=== PATIENT | female | born 1995 | race Caucasian/White ===

== ENCOUNTER → 2018-12-11 | Outpatient (REF) | payer MEDICAID, OTHER ==
[2018-12-11 12:35] LABS: HEMATOCRIT 38.3 % (36.0-47.0); HEMOGLOBIN 12.4 g/dl (12.0-15.5); MEAN CORPUSCULAR HEMOGLOBIN 27.7 pg (27.0-33.0); MEAN CORPUSCULAR HGB CONC 32.4 g/dl (32.0-36.5); MEAN CORPUSCULAR VOLUME 85.7 fl (80.0-96.0); PLATELET COUNT, AUTOMATED 229 10^3/uL (150-450); RED BLOOD COUNT 4.47 10^6/uL (4.00-5.40); WHITE BLOOD COUNT 10.4 10^3/uL (4.0-10.0)
[2018-12-11 13:10] LABS: HCG, SERUM QUANTITATIVE 21016 MIU/ML
[2018-12-12 08:38] LABS: RUBELLA IgG QUALITATIVE IMMUNE (IMMUNE)
[2018-12-12 09:05] LABS: HEPATITIS C VIRUS ABY INDEX 0.1 INDEX (<0.8)
[2018-12-12 09:28] LABS: HIV 1&2 SCREEN CENTAUR NEGATIVE (NEGATIVE)
== END ==
LOC: M LAB REF 11:46
PROVIDERS: ATTEND Nurse Practitioner Women's Health
DX: O36.80X0 Pregnancy with inconclusive fetal viability, not applicable or unspecified (principal); Z3A.00 Weeks of gestation of pregnancy not specified

== ENCOUNTER → 2019-04-17 | Outpatient (CLI) | payer MEDICAID ==
[2019-04-17 14:04] LABS: HEMATOCRIT 35.5 % (36.0-47.0); HEMOGLOBIN 11.5 g/dl (12.0-15.5); MEAN CORPUSCULAR HEMOGLOBIN 27.7 pg (27.0-33.0); MEAN CORPUSCULAR HGB CONC 32.4 g/dl (32.0-36.5); MEAN CORPUSCULAR VOLUME 85.5 fl (80.0-96.0); PLATELET COUNT, AUTOMATED 211 10^3/uL (150-450); RED BLOOD COUNT 4.15 10^6/uL (4.00-5.40)
[2019-04-20 07:36] LABS: WHITE BLOOD COUNT 10.7 10^3/uL (4.0-10.0)
== END ==
LOC: M LAB 11:57
PROVIDERS: ATTEND Obstetrics & Gynecology
DX: Z34.82 Encounter for supervision of other normal pregnancy, second trimester (principal); Z36.89 Encounter for other specified antenatal screening

== ENCOUNTER → 2019-06-25 | Outpatient (REF) | payer OTHER | LOC: M LAB REF 16:12 | PROVIDERS: ATTEND Obstetrics & Gynecology | DX: Z34.83 Encounter for supervision of other normal pregnancy, third trimester (principal) ==

== ENCOUNTER → 2019-07-24 | Outpatient (CLI) | payer OTHER ==
--- NOTE | 2019-07-24 14:19 | REP ---
OBSTETRIC SONOGRAPHY: HISTORY: Supervision of . Biophysical profile, estimated weight. SONOGRAPHIC FINDINGS: Scanning through the gravid uterus demonstrates a single living intrauterine cephalic fetus. motion is observed and heart rate is recorded at 132 beats per minute. An anterior grade 2 placenta is seen without evidence of previa or abruption. Amniotic fluid is subjectively normal. Closed cervical length is 3.5 cm, measured transabdominally. There is a 1.6 x 1.6 x 1.6 cm cyst noted incidentally in the right kidney. BIOMETRY CHART: BPD 8.9 cm = 36 weeks 0 days Head circumference 32.3 cm = 36 weeks 3 days Abdominal circumference 31.7 cm = 35 weeks 4 days Femur length 7.2 cm = 36 weeks 6 days Humeral length 6.3 cm = 36 weeks 2 days HC/AC ratio normal 1.02 Cephalic index normal 0.77 Estimated weight 2846 grams, 6 pounds 4 ounces, 15th percentile for 19 weeks 2 days. KEON 12.0 cm (7.2-22.2 cm). Biophysical profile score 8 out of a possible 8. IMPRESSION: Viable single intrauterine gestation at 36 weeks 1 day by today's composite sonographic criteria. RICARDO by today's criteria August 20, 2019. 1.6 cm cyst in the right kidney. BPP 8/8 and KEON 12.0 cm.
== END ==
LOC: M WHC 10:28
PROVIDERS: ATTEND Obstetrics & Gynecology
DX: O28.5 Abnormal chromosomal and genetic finding on antenatal screening of mother (principal); Z36.89 Encounter for other specified antenatal screening; Z3A.36 36 weeks gestation of pregnancy

== ENCOUNTER 2019-08-01 04:22 | Inpatient (IN) | payer OTHER ==
[2019-08-01] VITALS (59 sets, daily range): BP systolic 96–176; BP diastolic 56–98
[~2019-08-01] VITALS: Ht 162.6 cm; Wt 108.9 kg
[2019-08-01] MEDS ORDERED: LR 1,000 ML IV SCH (05:17)
[2019-08-01] MEDS ORDERED: LACTATED RINGER'S 1000 ML IV STA (05:17)
[2019-08-01 06:36] LABS: MEAN CORPUSCULAR HEMOGLOBIN 27.1 pg (27.0-33.0); MEAN CORPUSCULAR HGB CONC 33.3 g/dl (32.0-36.5); MEAN CORPUSCULAR VOLUME 81.3 fl (80.0-96.0); PLATELET COUNT, AUTOMATED 244 10^3/uL (150-450); RED BLOOD COUNT 4.43 10^6/uL (4.00-5.40); WHITE BLOOD COUNT 14.4 10^3/uL (4.0-10.0)
[2019-08-01 06:57] LABS: ALT/SGPT 16 U/L (12-78); BILIRUBIN,TOTAL 0.2 MG/DL (0.2-1.0); CREATININE FOR GFR 0.55 MG/DL (0.55-1.30); GLOMERULAR FILTRATION RATE > 60.0 (>60); LDH LACTATE DEHYDROGENASE 132 U/L (84-246)
[2019-08-01] MEDS ORDERED: FENTANYL 2MCG/ML ROPIVACAINE 0.2% IN 0.9% NACL 100ML IVBAG As Ordered ONE (08:12)
[2019-08-01] MEDS ORDERED: OXYTOCIN DRIP 30 UNITS in IV 1 EA IV SCH ×2 (08:15→15:45)
[2019-08-01] MEDS ORDERED: ePHEDrine SULFATE 25 MG/5 ML(5MG/ML) SYRINGE IV PRN (08:30)
[2019-08-01] MEDS ORDERED: NALOXONE INJ 0.4MG/1ML VIAL (J2310 PER 1MG) IV PRN (08:30)
[2019-08-01] MEDS ORDERED: EPIDURAL COMMENT XX SCH (08:30)
[2019-08-01] MEDS ORDERED: EPIDURAL/PCA KEYS XX PRN (08:30)
[2019-08-01] MEDS ORDERED: LACTATED RINGER'S 1000 ML IV PRN (08:30)
[2019-08-01] MEDS ORDERED: REFRIGERATOR IV KEYS XX PRN (08:30)
[2019-08-01] MEDS ORDERED: ONDANSETRON 4MG/2ML VIAL IV PRN (08:30)
[2019-08-01] MEDS ORDERED: FENTANYL/ROPIVACAINE/NACL BAG 100 ML EPIDURAL SCH (08:30)
[2019-08-01] MEDS ORDERED: diphenhydrAMINE 50MG/ML VIAL (J1200) IV PRN (08:30)
[2019-08-01] MEDS ORDERED: MEASLES,MUMPS,RUBELLA VACCINE INJ (MMR-II) (90707) SC SCH (15:15)
[2019-08-01] MEDS ORDERED: IBUPROFEN 800 MG TAB PO PRN (15:15)
[2019-08-01] MEDS ORDERED: ACETAMINOPHEN TAB 650MG DOSE (2X325MG) PO PRN (15:15)
[2019-08-01] MEDS ORDERED: DIBUCAINE 1% OINTMENT 30GM TOP PRN (15:15)
[2019-08-01] MEDS ORDERED: ACETAMINOPHEN 500 MG TAB PO PRN (15:15)
[2019-08-01] MEDS ORDERED: IBUPROFEN 600 MG TAB PO PRN (15:15)
[2019-08-01] MEDS ORDERED: METHYLERGONOVINE MALEATE 0.2 MG TAB PO PRN (15:15)
[2019-08-01] MEDS ORDERED: DOCUSATE SODIUM 100 MG CAP PO PRN (15:15)
[2019-08-01] MEDS ORDERED: RHOGAM 300 MCG (1500 IU) INJ (J2790) IM SCH (15:15)
[2019-08-01 15:16] LABS: CORD GAS ABE A -1.3; CORD GAS HCO3 A 26.4 MEQ/L; CORD GAS PCO2 A 55.1 mmHg; CORD GAS PH A 7.298 UNITS; CORD GAS PO2 A 20.3 mmHg; CORD GAS SBC A 21.7 MEQ/L; CORD GAS TCO2 A 28.1 MEQ/L
[2019-08-01 15:18] LABS: CORD GAS ABE V -3.1; CORD GAS O2 SAT V 66.8 %; CORD GAS PCO2 V 44.9 mmHg; CORD GAS PH V 7.328 UNITS; CORD GAS PO2 V 29.4 mmHg; CORD GAS TCO2 V 24.4 MEQ/L
[2019-08-01 22:53] LABS: HEMATOCRIT 29.2 % (36.0-47.0); MEAN CORPUSCULAR HEMOGLOBIN 27.2 pg (27.0-33.0); MEAN CORPUSCULAR HGB CONC 32.9 g/dl (32.0-36.5); MEAN CORPUSCULAR VOLUME 82.7 fl (80.0-96.0); PLATELET COUNT, AUTOMATED 220 10^3/uL (150-450); RED BLOOD COUNT 3.53 10^6/uL (4.00-5.40); WHITE BLOOD COUNT 15.4 10^3/uL (4.0-10.0)
[2019-08-01] MEDS ORDERED: MORPHINE 4 MG/ML 1ML VIAL/SYRINGE (J2270) As Ordered ONE (22:53)
[2019-08-01 22:59] LABS: HEMOGLOBIN 9.6 g/dl (12.0-15.5)
[2019-08-01] MEDS ORDERED: MORPHINE 10 MG/ML 1ML VIAL (J2270) IV ONE (23:00)
[2019-08-01] MEDS ORDERED: miSOPROStol 200 MCG TAB (S0191) As Ordered ONE (23:07)
[2019-08-01] MEDS ORDERED: METHYLERGONOVINE MALEATE 0.2 MG/ML VIAL (J2210) As Ordered ONE (23:08)
[2019-08-01] MEDS ORDERED: OXYTOCIN 30 UNITS IN 0.9% NaCl 500ML IV BAG (J2590) As Ordered ONE (23:08)
[2019-08-01] MEDS ORDERED: UNASYN 3 GM VIAL As Ordered ONE (23:09)
[2019-08-01] MEDS ORDERED: AMPICILLIN SOD/SULBACTAM SOD 3 GM in D5W MINI-BAG PLUS 100 ML IV ONE (23:15)
[2019-08-01] MEDS ORDERED: OXYTOCIN DRIP 30 UNITS in IV 1 EA IV ONE (23:15)
[2019-08-01] MEDS ORDERED: miSOPROStol 200 MCG TAB (S0191) SL ONE (23:15)
[2019-08-01] MEDS ORDERED: METHYLERGONOVINE MALEATE 0.2 MG/ML VIAL (J2210) IM ONE (23:15)
--- NOTE | 2019-08-01 23:22 | IPNPDOC ---
Text Note Date of Service The patient was seen on 08/01/19. NOTE Called to room with concern for hemorrhage. patient had gush of b lood while going to bathroom, felt dizzy. I came to assess patient. She had a normal this afternoon. uncomplicated medical history. no known drug allergies. Bimanual performed with fundus palpated at U, firm. Significant amount of blood clots in the lower uterine segment removed. Weight to be about 300cc. patient given methergine 0.2mg IM, pitocin hung at 125cc/hr. cytotec giving BUCCAL 1000mcg. LR 1000mg bolus with second IV line. CBC drawn. Fundus remains firm. bleeding s TAUS: endometrial stripe heterogenous appearing, measuring 4.5cm at fundal region. no doppler flow noted. patient given morphine 4mg IV prior to second bimanual exam, no blood clot noted, though still has mild flow. repeat TAUS unchanged from prior. Called Dr. Marshall (patient's tank terminal gauger) and reviewed the above with him. Discussed with Dr. Marshall consider going back to OR for suction D&C due to thickened stripe in setting of bleeding. Dr. Marshall would like to monitor at this time and will come in if patient continues to have bleeding. a/p patient with hemorrhage, lower uterine segment atony vs. retained products. Currently stable with out significant bleeding. patient discussed with Dr. Marshall, patient's primary OB physician and is aware of the situation, he is coming in to assess the patient. Unasyn 3gm IV hung for lower uterine segment exploration. VS,Fishbone, I+O VS, Fishbone, I+O Laboratory Tests 08/01/19 06:15 08/01/19 22:43 Vital Signs Date Time Temp Pulse Resp B/P (MAP) Pulse Ox O2 Delivery O2 Flow Rate FiO2 08/01/19 18:10 98.3 80 18 132/71 (91) DELLA MENDEZ DO August 01, 2019 23:22
[2019-08-02] MEDS ORDERED: MORPHINE 4 MG/ML 1ML VIAL/SYRINGE (J2270) IV ONE
--- NOTE | 2019-08-02 00:12 | IPNPDOC ---
Progress Note Date of Service: August 01, 2019 Day#: 0 Progress Note SUBJECT: [Mariia] is a [23]-year-old [2] now Para [1]-[0]-[1]-[1] status post uncomplicated spontaneous vaginal delivery at [40]-[3]/7 weeks' . Pt had an episode of bleeding and passing large clots. She nearly fainted while ambulating to the bathroom. Her RN called for help and Dr. Olmos who was on L&D came and evaluated pt. His note and help with patient appreciated. We discussed the pt. She received 100 mcg of cytotec and 02 mg of methergine as well as 1000 cc of LR with one dose of unasyn. Pt responded well. Her post bleeding H/H was 9.6/29. OBJECTIVE: VITAL SIGNS: Within normal limits, afebrile. Alert and oriented times three. Abdomen: Fundus firm at U-2. Soft, NTTP. [Minimal] lochia. No significant uterine tenderness. ASSESSMENT: [Mariia] is a [23]-year-old [2] now Para [1]-[0]-[1]-[1] status post uncomplicated spontaneous vaginal delivery with hemorrhage with an estimated blood lost of > 500 cc. Pt is stable in bed. Vitals within normal limits, afebrile, hemodynamically stable with no evidence of infection. PLAN: - Pt and her partner counseled extensively. She will be monitored in the next few hours for bleeding with frequent fundal check. If bleeding persist we may consider D& C for possible retained placenta. VS, I&O, 24H, Fishbone Vital Signs/I&O Vital Signs Date Time Temp Pulse Resp B/P (MAP) Pulse Ox O2 Delivery O2 Flow Rate FiO2 08/01/19 18:10 98.3 80 18 132/71 (91) Laboratory Data 24H LABS 08/01/19 06:15 08/01/19 22:43 CBC/BMP Laboratory Tests 08/01/19 06:15 08/01/19 22:43 Grayson Roa DO August 02, 2019 00:12
[2019-08-02 02:35] VITALS: BP 116/58
[2019-08-02 03:14] LABS: HEMATOCRIT 23.5 % (36.0-47.0); HEMOGLOBIN 7.7 g/dl (12.0-15.5); MEAN CORPUSCULAR HEMOGLOBIN 27.2 pg (27.0-33.0); MEAN CORPUSCULAR HGB CONC 32.8 g/dl (32.0-36.5); PLATELET COUNT, AUTOMATED 165 10^3/uL (150-450); RED BLOOD COUNT 2.83 10^6/uL (4.00-5.40); WHITE BLOOD COUNT 20.1 10^3/uL (4.0-10.0)
[2019-08-02 04:57] VITALS: BP 113/57
[2019-08-02] MEDS: PRENATAL VITAMINS CHEWABLE TABLET PO SCH (09:20)
[2019-08-02 09:26] LABS: HEMATOCRIT 23.6 % (36.0-47.0); HEMOGLOBIN 7.7 g/dl (12.0-15.5); MEAN CORPUSCULAR HGB CONC 32.6 g/dl (32.0-36.5); MEAN CORPUSCULAR VOLUME 82.8 fl (80.0-96.0); PLATELET COUNT, AUTOMATED 170 10^3/uL (150-450); RED BLOOD COUNT 2.85 10^6/uL (4.00-5.40)
[2019-08-02 10:00] VITALS: BP 117/62
[2019-08-02 14:00] VITALS: BP 129/60
--- NOTE | 2019-08-02 16:12 | HPE ---
DATE OF ADMISSION: 08/01/2019 Evangelina is a 23-year-old female 2, para 0-0-1-0 with an estimated date of confinement (EDC) of 07/29/2019, estimated gestational age (EGA) 40-3/7 weeks gestation who presented to labor and delivery with complaints of contractions every 3-4 minutes. Upon evaluation in labor and delivery, she was found to be in early labor. At this point, a decision was made for admission. Her record reviewed which was essentially unremarkable. LABORATORY DATA: Blood type is blood type is A+, rubella immune, hepatitis negative, HIV negative, GC and chlamydia negative, one-hour sugar testing was within normal limits. Her GBS is negative. PAST MEDICAL HISTORY: Denies. PAST SURGICAL HISTORY: Denies. SOCIAL HISTORY: Denies any alcohol, drug or cigarette smoking. REVIEW OF SYSTEMS: Unremarkable. MEDICATIONS: vitamin. ALLERGIES: No known drug allergies. FAMILY HISTORY: Significant for non-Hodgkin's lymphoma. PHYSICAL EXAMINATION: Obese female, in no acute distress. ABDOMEN: Soft, nontender, nondistended. EXTREMITIES: No clubbing, cyanosis or edema. VAGINAL EXAMINATION: 3-4 cm dilated, 80% effaced, fetus at -3 station to -4 in the vertex position, membrane intact. Tracing reviewed, category 1 tracing, contractions every 4-5 minutes. ASSESSMENT: Intrauterine at 40-3/7 weeks gestation in early labor. Group B Streptococcus (GBS) negative. PLAN: Admit to labor and delivery. Routine laboratories sent. Pain management discussed. The patient opted for an epidural. We will continue to monitor. Anticipate delivery.
[2019-08-02 18:10] VITALS: BP 130/70
[2019-08-02 22:00] VITALS: BP 141/65
[2019-08-03 02:00] VITALS: BP 118/60
[2019-08-03 06:00] VITALS: BP 122/68
[2019-08-03] MEDS ORDERED: BOOSTRIX/ADACEL VACCINE (DIPHTH/PERTUSS/ACELL/TETANUS) 0.5ML SYR IM ONE (09:00)
[2019-08-03] MEDS: PRENATAL VITAMINS CHEWABLE TABLET PO SCH (09:44)
== END 2019-08-03 11:15 | disposition home or self-care (01) | DRG 560 ==
LOC: M LDO 04:22 → M LDI 05:20 → M OBS 17:54
PROVIDERS: ADMIT Obstetrics & Gynecology; ATTEND Obstetrics & Gynecology
PROC: 10E0XZZ Delivery of Products of Conception, External Approach (ICD-10-PCS; principal; 2019-08-01)
PROC: 0HQ9XZZ Repair Perineum Skin, External Approach (ICD-10-PCS; 2019-08-01)
DX: O48.0 Post-term pregnancy (principal); O70.0 First degree perineal laceration during delivery; Z37.0 Single live birth; Z3A.40 40 weeks gestation of pregnancy

== ENCOUNTER → 2021-02-01 | Outpatient (CLI) | payer OTHER ==
[2021-02-01 17:29] LABS: HEMATOCRIT 40.4 % (36.0-47.0); HEMOGLOBIN 12.9 g/dl (12.0-15.5); MEAN CORPUSCULAR HEMOGLOBIN 27.2 pg (27.0-33.0); MEAN CORPUSCULAR HGB CONC 31.9 g/dl (32.0-36.5); MEAN CORPUSCULAR VOLUME 85.2 fl (80.0-96.0); PLATELET COUNT, AUTOMATED 233 10^3/uL (150-450); RED BLOOD COUNT 4.74 10^6/uL (4.00-5.40); WHITE BLOOD COUNT 11.3 10^3/uL (4.0-10.0)
[2021-02-01 17:31] LABS: HEMOGLOBIN A1c 5.4 %
[2021-02-01 18:24] LABS: HEPATITIS C VIRUS ABY INDEX 0.1 INDEX (<0.8); HIV 1&2 SCREEN CENTAUR NEGATIVE (NEGATIVE)
[2021-02-01 22:35] LABS: GC DNA AMPLIFICATION NEGATIVE (NEGATIVE)
== END ==
LOC: M PLALAB 14:59
PROVIDERS: ATTEND Advanced Practice Midwife
DX: Z36.89 Encounter for other specified antenatal screening (principal); Z3A.10 10 weeks gestation of pregnancy

== ENCOUNTER → 2021-04-10 | Outpatient (CLI) | payer OTHER | LOC: M WHC 10:30 | PROVIDERS: ATTEND Obstetrics & Gynecology | DX: Z36.89 Encounter for other specified antenatal screening (principal); Z3A.20 20 weeks gestation of pregnancy ==

== ENCOUNTER → 2021-08-08 | Outpatient (REF) | payer OTHER | LOC: M SFHCWAGY 13:10 | PROVIDERS: ATTEND Specialist | DX: Z34.83 Encounter for supervision of other normal pregnancy, third trimester (principal) ==

== ENCOUNTER 2021-09-03 17:22 | Inpatient (IN) | payer OTHER ==
[~2021-09-03] VITALS: Ht 162.6 cm; Wt 102.2 kg
[2021-09-03] MEDS ORDERED: STUACAP PO (17:40)
[2021-09-03] MEDS ORDERED: HOME MED LIST COMPLETE! XX SCH (17:40)
[2021-09-03 17:51] VITALS: BP 173/92
[2021-09-03 18:48] VITALS: BP 133/71
[2021-09-03] MEDS ORDERED: LACTATED RINGER'S 1000 ML IV STA (20:08)
[2021-09-03] MEDS ORDERED: METHYLERGONOVINE MALEATE 0.2 MG/ML VIAL (J2210) IM PRN (20:10)
[2021-09-03] MEDS ORDERED: CARBOPROST TROMETHAMINE 250 MCG/ML AMP IM PRN (20:10)
[2021-09-03] MEDS ORDERED: TRANEXAMIC ACID INJection 1,000 MG in NS 100 ML IV PRN (20:10)
[2021-09-03 20:25] LABS: HEMATOCRIT 35.3 % (36.0-47.0); HEMOGLOBIN 11.5 g/dl (12.0-15.5); MEAN CORPUSCULAR HGB CONC 32.6 g/dl (32.0-36.5); MEAN CORPUSCULAR VOLUME 82.9 fl (80.0-96.0); PLATELET COUNT, AUTOMATED 213 10^3/uL (150-450); RED BLOOD COUNT 4.26 10^6/uL (4.00-5.40)
[2021-09-03] MEDS ORDERED: ceFAZolin SOD 2 GM in IV 1 EA IV ONE (21:00)
[2021-09-03] MEDS ORDERED: BICITRA 30ML SOLN UDC PO ONE (21:00)
[2021-09-03] MEDS ORDERED: MORPHINE PRES-FREE INJ 10 MG/10 ML VIAL As Ordered ONE (22:50)
[2021-09-03] MEDS ORDERED: METOCLOPRAMIDE INJ 10MG/2ML VIAL (J2765 PER 1) As Ordered ONE (22:52)
[2021-09-03] MEDS ORDERED: OXYTOCIN 30 UNITS IN 0.9% NaCl 500ML IV BAG (J2590) As Ordered ONE (22:53)
[2021-09-03] MEDS ORDERED: OXYTOCIN INJ 10 UNITS/ML VIAL (J2590) As Ordered ONE ×2 (22:55→23:25)
[2021-09-03] MEDS ORDERED: KETOROLAC 60MG 2ML VIAL As Ordered ONE (23:56)
[2021-09-04] VITALS (7 sets, daily range): BP systolic 128–143; BP diastolic 65–75
[2021-09-04] MEDS ORDERED: METOPROLOL 5 MG/5 ML VIAL As Ordered ONE (00:10)
[2021-09-04] MEDS ORDERED: hydrALAZINE 20MG/ML 1ML VIAL (J0360 PER 20MG) As Ordered ONE (00:24)
[2021-09-04] MEDS ORDERED: oxyCODONE 5MG TAB PO PRN (00:40)
[2021-09-04] MEDS ORDERED: SIMETHICONE 80MG CHEW TAB PO PRN (00:40)
[2021-09-04] MEDS ORDERED: MEPERIDINE INJ 25 MG/ML VIAL (J2175) IV PRN (00:40)
[2021-09-04] MEDS ORDERED: ONDANSETRON 4MG 2ML VIAL IV PRN ×2 (00:40)
[2021-09-04] MEDS ORDERED: HYDROMORPHONE HCL 0.5 MG/ 0.5 ML SYRINGE (J1170 PER 1) IV PRN (00:40)
[2021-09-04] MEDS ORDERED: fentaNYL 100 MCG/2 ML INJECTION IV PRN (00:40)
[2021-09-04] MEDS ORDERED: OXYTOCIN DRIP 30 UNITS in IV 1 EA IV SCH (00:40)
[2021-09-04] MEDS ORDERED: RHOGAM 300 MCG (1500 IU) INJ (J2790) IM SCH (00:40)
[2021-09-04] MEDS ORDERED: PERCOCET 5MG/325MG TAB PO PRN (00:40)
[2021-09-04] MEDS ORDERED: PERCOCET PO (00:58)
[2021-09-04] MEDS ORDERED: COLA100C5 PO (00:58)
[2021-09-04] MEDS ORDERED: IBUP80TA PO (00:58)
[2021-09-04] MEDS ORDERED: NALOXONE INJ 0.4MG/1ML VIAL (J2310 PER 1MG) IV PRN ×2 (01:25)
[2021-09-04] MEDS ORDERED: diphenhydrAMINE 50MG/ML VIAL (J1200) IV PRN (01:25)
[2021-09-04] MEDS ORDERED: **NOTE PATIENT COMMENT** MISC XX SCH (01:25)
[2021-09-04] MEDS: SLF 3 ML SYR IV SCH ×3 (02:00→18:00)
[2021-09-04] MEDS ORDERED: ONDANSETRON 4MG 2ML VIAL As Ordered ONE (02:03)
[2021-09-04] MEDS: METOCLOPRAMIDE INJ 10MG/2ML VIAL (J2765 PER 1) IV PRN ×2 (03:23→13:36)
[2021-09-04] MEDS: LR 1,000 ML IV SCH ×4 (03:23→16:40)
[2021-09-04] MEDS: KETOROLAC 30 MG/ML 1ML VIAL IV SCH ×3 (05:52→19:21)
[2021-09-04] MEDS: DOCUSATE SODIUM 100MG CAPSULE PO SCH ×2 (08:40→21:45)
[2021-09-04] MEDS: PRENATAL VITAMINS CHEWABLE TABLET PO SCH (08:40)
[2021-09-04] MEDS: PERCOCET 5MG/325MG TAB PO PRN (08:41)
[2021-09-05 02:00] VITALS: BP 142/83
[2021-09-05] MEDS: IBUPROFEN 800 MG TAB PO SCH ×2 (03:57→09:10)
[2021-09-05 06:00] VITALS: BP 143/77
[2021-09-05 07:22] LABS: HEMATOCRIT 31.5 % (36.0-47.0); HEMOGLOBIN 10.3 g/dl (12.0-15.5); MEAN CORPUSCULAR HEMOGLOBIN 27.2 pg (27.0-33.0); MEAN CORPUSCULAR HGB CONC 32.7 g/dl (32.0-36.5); MEAN CORPUSCULAR VOLUME 83.1 fl (80.0-96.0); PLATELET COUNT, AUTOMATED 182 10^3/uL (150-450); RED BLOOD COUNT 3.79 10^6/uL (4.00-5.40); WHITE BLOOD COUNT 13.6 10^3/uL (4.0-10.0)
[2021-09-05] MEDS: DOCUSATE SODIUM 100MG CAPSULE PO SCH (07:32)
[2021-09-05] MEDS: PRENATAL VITAMINS CHEWABLE TABLET PO SCH (07:32)
[2021-09-05] MEDS: PERCOCET 5MG/325MG TAB PO PRN (07:32)
[2021-09-06] MEDS ORDERED: MEASLES,MUMPS,RUBELLA VACCINE INJ (MMR-II) (90707) SC.IMMUN ONE (09:00)
== END 2021-09-05 12:25 | disposition home or self-care (01) | DRG 540 ==
LOC: M LDI 17:22 → M OBS 09-04 03:00
PROVIDERS: ADMIT Obstetrics & Gynecology; ATTEND Obstetrics & Gynecology
PROC: 10D00Z1 Extraction of Products of Conception, Low, Open Approach (ICD-10-PCS; principal; 2021-09-03 23:23)
DX: O48.0 Post-term pregnancy (principal); Z3A.41 41 weeks gestation of pregnancy; Z37.0 Single live birth; O32.1XX0 Maternal care for breech presentation, not applicable or unspecified; O69.1XX0 Labor and delivery complicated by cord around neck, with compression, not applicable or unspecified